=== PATIENT | female | born 1945 | race Two or more races ===

== ENCOUNTER 2018-11-20 18:57 | Inpatient (IN) | payer MEDICARE ==
--- NOTE | 2018-11-20 19:40 | ED PDOC ---
Arrival/HPI - General Chief Complaint: Eye Problem Time Seen by Provider: 11/20/18 19:11 Historian: Patient - History of Present Illness Narrative History of Present Illness (Text): 11/20/18 19:37 70 y/o F w/ h/o HTN, GERD, PNA presenting to the Emergency Room with complaint of bilateral eye irritation. The patient states she noted visual disturbances with intermittent cloudy vision since 2PM this afternoon and was told by her son she had greenish purulent discharge noted from her eyes bilaterally. She reports conjunctiva injection, pruritus and occasional irritation. Of note, the patient has a history of medication non-compliance and is not currently on any medications for her medical conditions. She recalls a distant history of her non-productive cough beginning in September where she was prescribed Levaquin for a presumed PNA and had incidental polyps found within the lung, but had not yet had an bronchoscopy performed. PCP: Dr. Casillas Time/Duration: Prior to Arrival, 4-6 hours Symptom Onset: Sudden Symptom Course: Unchanged Activities at Onset: Rest Context: Home Past Medical History - Provider Review Nursing Documentation Reviewed: Yes - Travel History Have you recently traveled outside [place] w/in the past 3 mons?: No - Infectious Disease Hx of Infectious Diseases: None Family/Social History - Physician Review Nursing Documentation Reviewed: Yes Family/Social History: Unknown Family HX Allergies/Home Meds Allergies/Adverse Reactions: Allergies ibuprofen [From Advil] Allergy (Verified 11/21/18 11:59) ITCHING Home Medications: Home Meds Medication Instructions Recorded Confirmed Pantoprazole [Protonix EC Tab] 40 mg PO DAILY 11/20/18 11/20/18 amLODIPine [Norvasc] 10 mg PO DAILY 11/20/18 11/20/18 Review of Systems - Review of Systems Eyes: Other (purulent discharge) Physical Exam Vital Signs Reviewed: Yes Vital Signs Temp Pulse Resp BP Pulse Ox 11/20/18 19:29 99.4 F 89 16 178/83 H 96 Temperature: Afebrile Blood Pressure: Hypertensive Pulse: Regular Respiratory Rate: Normal Appearance: Positive for: Well-Appearing Medical Decision Making ED Course and Treatment: 11/20/18 23:06 Impression 70F w/ h/o Hypertension and glaucoma presenting to the Emergency Room for bilateral eye discharge Differential Diagnoses Include But Are Not Limited To: --Bacterial conjunctivitis --PNA --Bronchitis Plan --Labs --NSS --Tobramycin drops --CXR --EKG --Urinalysis --Urine culture --Reassess & disposition Progress Notes 11/20/18 23:44 Review of labs reveal leukocytosis with shift. Tobramycin drops ordered. Shared decision making with family for the benefit of staying in the hospital for admission with patient in agreement. Discussed case with medical office representative and house physician who accepts patient onto hospitalist service. - Lab Interpretations Lab Results: 11/20/18 20:20 11/20/18 20:20 Lab Results 11/20/18 22:44: pO2 165 H, VBG pH 7.42, VBG pCO2 43.0, VBG HCO3 27.9, VBG Total CO2 29.2 H, VBG O2 Sat (Calc) 100.2 H, VBG Base Excess 2.9 H, VBG Potassium 4.0, Glucose 117 H, Lactate 0.9, FiO2 21.0, Sodium 137.0, Chloride 104.0, Venous Blood Potassium 4.0 11/20/18 20:20: Influenza Typ A,B (EIA) Negative for flu a/b 11/20/18 20:20: Sodium 138, Potassium 4.1, Chloride 100, Carbon Dioxide 30, Anion Gap 12, BUN 19, Creatinine 0.7, Est GFR ( Amer) > 60, Est GFR (Non- Af Amer) > 60, Random Glucose 120 H, Calcium 10.1, Total Bilirubin 1.3, AST 28, ALT 17, Alkaline Phosphatase 107, Total Protein 9.0 H, Albumin 4.7, Globulin 4.3, Albumin/Globulin Ratio 1.1 11/20/18 20:20: Urine Color Yellow, Urine Appearance Clear, Urine pH 6.0, Ur Specific [place] 1.015, Urine Protein Negative, Urine Glucose (UA) Negative, Urine Ketones Negative, Urine Blood Small H, Urine Nitrate Negative, Urine Bilirubin Negative, Urine Urobilinogen 0.2, Ur Leukocyte Esterase Trace H, Urine RBC 0 - 2, Urine WBC 0 - 2, Ur Epithelial Cells None 11/20/18 20:20: WBC 13.6 H, RBC 4.39, Hgb 13.4, Hct 40.7, MCV 92.7, MCH 30.5, MCHC 32.9, RDW 12.1, Plt Count 248, MPV 10.8, Gran % 65.8, Lymph % (Auto) 21.9 L , [place] % (Auto) 10.5 H, Eos % (Auto) 1.5, Baso % (Auto) 0.3, Gran # 8.93 H, Lymph # (Auto) 3.0, [place] # (Auto) 1.4 H, Eos # (Auto) 0.2, Baso # (Auto) 0.04 I have reviewed the lab results: Yes - EKG Interpretation EKG Interpretation (Text): 11/23/18 08:26 EKG: Ordered, reviewed, and independently interpreted the EKG. Rate : 80 BPM Rhythm : NSR Interpretation : LBBB, diffuse ST depressions with T-wave inversions in infarct leads. Comparison : No previous EKG for comparison. Interpreted by ED Physician: Yes Disposition/Present on Arrival - Present on Arrival Any Indicators Present on Arrival: No History of DVT/PE: No History of Uncontrolled Diabetes: No Urinary Catheter: No History of Decub. Ulcer: No History Surgical Site Infection Following: None - Disposition Have Diagnosis and Disposition been Completed?: Yes Diagnosis: Bacterial conjunctivitis of both eyes, ST segment depression Disposition: HOSPITALIZED Disposition Time: 22:35 Patient Plan: Admission Condition: GOOD
[2018-11-20 20:32] LABS: BASO # 0.04 K/mm3 (0.0-2.0); BASO % 0.3 % (0.0-3.0); EOS # 0.2 (0.0-0.7); EOS % 1.5 % (1.5-5.0); GRAN # 8.93 (1.4-6.5); GRAN % 65.8 % (50.0-68.0); HEMOGLOBIN 13.4 g/dL (12.0-16.0); LYMPH % 21.9 % (22.0-35.0); MEAN CELL VOLUME 92.7 fl (80.0-105.0); MEAN CORPUSCULAR HEMOGLOBIN 30.5 pg (25.0-35.0); MEAN CORPUSCULAR HGB CONC 32.9 g/dl (31.0-37.0); MEAN PLATELET VOLUME 10.8 fl (7.0-11.0); MONO # 1.4 (0.1-0.6); MONO % 10.5 % (1.0-6.0); RBC 4.39 10^6/uL (3.5-6.1); RED CELL DISTRIBUTION WIDTH 12.1 % (11.5-14.5); URINE BILIRUBIN NEGATIVE (NEGATIVE); URINE BLOOD SMALL (NEGATIVE); URINE GLUCOSE (UA) NEGATIVE (NEGATIVE); URINE LEUKOCYTE ESTERASE TRACE Leu/uL (NEGATIVE); URINE PROTEIN NEGATIVE mg/dL (<30 mg/dL); URINE UROBILINOGEN 0.2 E.U./dL (<1 E.U./dL); WHITE BLOOD COUNT 13.6 10^3/uL (4.5-11.0)
[2018-11-20 20:33] LABS: URINE APPEARANCE CLEAR (CLEAR); URINE COLOR YELLOW (YELLOW)
[2018-11-20 20:41] LABS: URINE RBC 0 - 2 /hpf (0-2); URINE WBC 0 - 2 /hpf (0-6)
[2018-11-20 20:45] LABS: ALB/GLOB RATIO 1.1 (1.1-1.8); ALBUMIN 4.7 g/dL (3.0-4.8); ALT/SGPT 17 U/L (7-56); AST/SGOT 28 U/L (14-36); BLOOD UREA NITROGEN 19 mg/dL (7-21); CALCIUM 10.1 mg/dL (8.4-10.5); GFR NON-AFRICAN AMERICAN > 60
[2018-11-20] MEDS ORDERED: Metoprolol 1 mg/ml Inj IVP STA (21:44)
[2018-11-20] MEDS ORDERED: Tobramycin 0.3% OPHT SOLN OU STA (22:17)
[2018-11-20 22:50] LABS: VENOUS BLOOD GAS BASE EXCESS 2.9 mmol/L (0.0-2.0); VENOUS BLOOD GAS PO2 165 mm/Hg (30-55); VENOUS BLOOD PH 7.42 (7.32-7.43)
[2018-11-20 23:12] LABS: TROPONIN I 0.01 ng/mL
[2018-11-21] MEDS ORDERED: Albuterol-Ipratrop 3 mg / 0.5 (3 ml) UD IH PRN (00:05)
--- NOTE | 2018-11-21 00:19 | CP.PCM.HP ---
<SylPraneeth - Last Filed: 11/21/18 00:08> History of Present Illness - History of Present Illness History of Present Illness: Praneeth Streeter, PGY-1, Internal Medicine History and Physical for Dr. Zuniga 70 year old with past medical history of hypertension, Sjogren's syndrome, glaucoma, and asthma currently taking no medications presents with bilateral eye discharge that started today and chronic cough for two weeks. Patient reports left eye pain and redness that progressed to the right eye that started at 13:00 on 11/20. Patient had bilateral eye discharged at 15:00 on 11/20. Patient had no change in vision, double vision, or loss of vision, or pruritis but reported that her eyes have been dry. Patient has not been in contact with anybody with the same symptoms or been in contact with children. Patient has had cough with krause sputum mixed with blood for 2 weeks. Patient had had dry cough for 2 weeks and reported recent krause sputum with mixed blood. Patient reports hoarseness, sore throat, and dry mouth. Patient reports no exacerbating or remitting factors. Patient reported no fever, chest pain, shortness of breath, and has not taken anything for these symptoms. Patient also reports occasional shortness of breath and dry cough during the winter months yearly. PMH: hypertension, Sjogren's, glaucoma, asthma PSH: left meniscus surgery, bladder lift, varicose vein ablation FMHx: Mother: hypertension, glaucoma SHx: denies smoking, alcohol, or recreational drug use Allergies: advil: pruritis Last echocardiogram: done [address] Ward but results are unknown PMD: Dr. Casillas Marketing Production Manager: Dr. Ward Home Rx: denies Present on Admission - Present on Admission Any Indicators Present on Admission: No Review of Systems - Constitutional Constitutional: absent: Chills, Fever - EENT Eyes: Discharge, Dry Eye, Floaters, Pain. absent: Blurred Vision, Change in Vision, Diplopia, Itchy Eyes Ears: absent: Decreased Hearing Nose/Mouth/Throat: Nasal Congestion, Nasal Discharge, Dry Mouth, Hoarsness, Sore Throat - Cardiovascular Cardiovascular: absent: Chest Pain, Dyspnea, Orthopnea - Respiratory Respiratory: Cough (productive with krause sputum mixed with blood). absent: Dyspnea, Wheezing - Gastrointestinal Gastrointestinal: absent: Abdominal Pain, Constipation, Diarrhea, Nausea, Vomiting - Genitourinary Genitourinary: absent: Dysuria, Hematuria - Musculoskeletal Musculoskeletal: absent: Arthralgias, Back Pain - Neurological Neurological: absent: Numbness, Headaches, Tingling, Tremor, Vertigo Past Patient History - Infectious Disease Hx of Infectious Diseases: None - Past Social History Smoking Status: Never Smoked - CARDIAC Hx Cardiac Disorders: Yes Hx Angina: Yes Hx Hypertension: Yes Other/Comment: "problem with her valve" - PULMONARY Hx Respiratory Disorders: Yes Hx Asthma: Yes - NEUROLOGICAL Hx Neurological Disorder: No - HEENT Hx HEENT Problems: No - RENAL Hx Chronic Kidney Disease: No - ENDOCRINE/METABOLIC Hx Endocrine Disorders: No - HEMATOLOGICAL/ONCOLOGICAL Hx Blood Disorders: No - INTEGUMENTARY Hx Dermatological Problems: No - MUSCULOSKELETAL/RHEUMATOLOGICAL Hx Musculoskeletal Disorders: Yes Hx Degenerative Joint Disease: Yes - GASTROINTESTINAL Hx Gastrointestinal Disorders: Yes Hx Gastroesophageal Reflux: Yes - GENITOURINARY/GYNECOLOGICAL Hx Genitourinary Disorders: No - PSYCHIATRIC Hx Psychophysiologic Disorder: No Hx Substance Use: No - SURGICAL HISTORY Hx Surgeries: Yes Hx Arthroscopy: Yes (lt knee) Hx Tubal Ligation: Yes Other/Comment: bilat rotator cuff sx. bladder sx - ANESTHESIA Hx Anesthesia: Yes Hx Anesthesia Reactions: No Hx Malignant Hyperthermia: No Meds Allergies/Adverse Reactions: Allergies Allergy/AdvReac Type Severity Reaction Status Date / Time ibuprofen [From Advil] Allergy ITCHING Verified 11/20/18 19:48 Physical Exam - Constitutional Appears: Well, Non-toxic, No Acute Distress - Head Exam Head Exam: ATRAUMATIC, NORMAL INSPECTION, NORMOCEPHALIC - Eye Exam Eye Exam: EOMI, PERRL Pupil Exam: NORMAL ACCOMODATION, PERRL Additional comments: bilateral conjunctival infection, bilateral eye discharge - ENT Exam ENT Exam: Mucous Membranes Dry Additional comments: isolated bone on top palate of buccal region - Neck Exam Neck exam: Positive for: Full Rom - Respiratory Exam Respiratory Exam: Clear to Auscultation Bilateral, NORMAL BREATHING PATTERN - Cardiovascular Exam Cardiovascular Exam: REGULAR RHYTHM, RRR - GI/Abdominal Exam GI & Abdominal Exam: Normal Bowel Sounds, Soft. absent: Tenderness - Extremities Exam Extremities exam: Positive for: full ROM Additional comments: negative Heike's sign - Neurological Exam Neurological exam: Alert, CN II-XII Intact, Oriented x3 - Skin Skin Exam: Dry, Intact, Normal Color Results - Vital Signs Recent Vital Signs: Last Vital Signs Temp 99.2 F 11/20/18 22:30 Pulse 80 11/20/18 22:30 Resp 18 11/20/18 22:30 BP 167/100 H 11/20/18 22:30 Pulse Ox 97 11/20/18 22:30 - Labs Result Diagrams: 11/20/18 20:20 11/20/18 20:20 Labs: Laboratory Results - last 24 hr 11/20/18 11/20/18 11/20/18 20:20 20:20 20:20 WBC 13.6 H RBC 4.39 Hgb 13.4 Hct 40.7 MCV 92.7 MCH 30.5 MCHC 32.9 RDW 12.1 Plt Count 248 MPV 10.8 Gran % 65.8 Lymph % (Auto) 21.9 L [place] % (Auto) 10.5 H Eos % (Auto) 1.5 Baso % (Auto) 0.3 Gran # 8.93 H Lymph # (Auto) 3.0 [place] # (Auto) 1.4 H Eos # (Auto) 0.2 Baso # (Auto) 0.04 D-Dimer, Quantitative pO2 VBG pH VBG pCO2 VBG HCO3 VBG Total CO2 VBG O2 Sat (Calc) VBG Base Excess VBG Potassium Glucose Lactate FiO2 Sodium 138 Potassium 4.1 Chloride 100 Carbon Dioxide 30 Anion Gap 12 BUN 19 Creatinine 0.7 Est GFR ( Amer) > 60 Est GFR (Non-Af Amer) > 60 Random Glucose 120 H Calcium 10.1 Total Bilirubin 1.3 AST 28 ALT 17 Alkaline Phosphatase 107 Troponin I NT-Pro-B Natriuret Pep Total Protein 9.0 H Albumin 4.7 Globulin 4.3 Albumin/Globulin Ratio 1.1 Venous Blood Potassium Urine Color Yellow Urine Appearance Clear Urine pH 6.0 Ur Specific [place] 1.015 Urine Protein Negative Urine Glucose (UA) Negative Urine Ketones Negative Urine Blood Small H Urine Nitrate Negative Urine Bilirubin Negative Urine Urobilinogen 0.2 Ur Leukocyte Esterase Trace H Urine RBC 0 - 2 Urine WBC 0 - 2 Ur Epithelial Cells None Influenza Typ A,B (EIA) 11/20/18 11/20/18 11/20/18 20:20 22:44 22:44 WBC RBC Hgb Hct MCV MCH MCHC RDW Plt Count MPV Gran % Lymph % (Auto) [place] % (Auto) Eos % (Auto) Baso % (Auto) Gran # Lymph # (Auto) [place] # (Auto) Eos # (Auto) Baso # (Auto) D-Dimer, Quantitative pO2 165 H VBG pH 7.42 VBG pCO2 43.0 VBG HCO3 27.9 VBG Total CO2 29.2 H VBG O2 Sat (Calc) 100.2 H VBG Base Excess 2.9 H VBG Potassium 4.0 Glucose 117 H Lactate 0.9 FiO2 21.0 Sodium 137.0 Potassium Chloride 104.0 Carbon Dioxide Anion Gap BUN Creatinine Est GFR ( Amer) Est GFR (Non-Af Amer) Random Glucose Calcium Total Bilirubin AST ALT Alkaline Phosphatase Troponin I 0.01 NT-Pro-B Natriuret Pep 1140 H Total Protein Albumin Globulin Albumin/Globulin Ratio Venous Blood Potassium 4.0 Urine Color Urine Appearance Urine pH Ur Specific [place] Urine Protein Urine Glucose (UA) Urine Ketones Urine Blood Urine Nitrate Urine Bilirubin Urine Urobilinogen Ur Leukocyte Esterase Urine RBC Urine WBC Ur Epithelial Cells Influenza Typ A,B (EIA) Negative for flu a/b 11/20/18 22:44 WBC RBC Hgb Hct MCV MCH MCHC RDW Plt Count MPV Gran % Lymph % (Auto) [place] % (Auto) Eos % (Auto) Baso % (Auto) Gran # Lymph # (Auto) [place] # (Auto) Eos # (Auto) Baso # (Auto) D-Dimer, Quantitative 620 H pO2 VBG pH VBG pCO2 VBG HCO3 VBG Total CO2 VBG O2 Sat (Calc) VBG Base Excess VBG Potassium Glucose Lactate FiO2 Sodium Potassium Chloride Carbon Dioxide Anion Gap BUN Creatinine Est GFR ( Amer) Est GFR (Non-Af Amer) Random Glucose Calcium Total Bilirubin AST ALT Alkaline Phosphatase Troponin I NT-Pro-B Natriuret Pep Total Protein Albumin Globulin Albumin/Globulin Ratio Venous Blood Potassium Urine Color Urine Appearance Urine pH Ur Specific [place] Urine Protein Urine Glucose (UA) Urine Ketones Urine Blood Urine Nitrate Urine Bilirubin Urine Urobilinogen Ur Leukocyte Esterase Urine RBC Urine WBC Ur Epithelial Cells Influenza Typ A,B (EIA) Assessment & Plan - Assessment and Plan (Free Text) Assessment: 70 year old with past medical history of hypertension, Sjogren's syndrome, glaucoma, and asthma currently taking no medications presents with bilateral eye discharge that started today and chronic cough for two weeks. Plan: Cough with sputum 2/2 to acute bronchitis vs. community acquired pneumonia -Chest X Ray: questionable left lower lobe infiltrate read by me -WBC: 13.6 but does not currently meet criteria for SIRS -Negative influenza screen -Strep pneumonia urine antigen ordered -Isolated D-Dimer elevation. Likely due to recent infection. Patient currently does not have any acute symptoms or signs concerning for DVT or PE. Continue to monitor. -Rocephin and doxycycline for CAP. Avoid antibiotics and medications that prolong QTc, such as macrolides and fluoroquinolones -Tessalon Perles for cough -Duonebs PRN for supportive treatment for shortness of breath -Robitussin PRN for cough Purulent Conjunctivitis 2/2 to bacterial vs. 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 History of Hypertension -Patient currently does not take any medication at home -Patient's blood pressure is 178/98 -Troponin<0.01 -BNP: 1140. Baseline unknown -Lisinopril 20 mg daily ordered due to additional history of possible nephropathy -Patient's EKG showed evidence of possible LVH, which is possibly due to hypertension so blood pressure should be well controlled -Obtain records from Dr. Ward for last echocardiogram 3 months ago due to elevated BNP. Unlikely, but could be possible cause of unilateral effusion vs. infiltrate on Chest X Ray History of Asthma likely Mild intermittent asthma -Patient should get outpatient PFTs -Patient currently asymptomatic and stating at 97% on room air -Duonebs Q2PRN for shortness of breath GI prophylaxis: protonix 40 mg daily DVT prophylaxis: lovenox 40 mg daily Patient plan discussed with Dr. Zuniga. - Date & Time Date: 11/21/18 Time: 00:24 <Melva Zuniga - Last Filed: 11/21/18 06:43> Results - Vital Signs Recent Vital Signs: Last Vital Signs Temp 98.7 F 11/21/18 03:08 Pulse 83 11/21/18 05:00 Resp 14 11/21/18 05:00 BP 137/79 11/21/18 05:00 Pulse Ox 95 11/21/18 05:00 - Labs Result Diagrams: 11/20/18 20:20 11/20/18 20:20 Labs: Laboratory Results - last 24 hr 11/20/18 11/20/18 11/20/18 20:20 20:20 20:20 WBC 13.6 H RBC 4.39 Hgb 13.4 Hct 40.7 MCV 92.7 MCH 30.5 MCHC 32.9 RDW 12.1 Plt Count 248 MPV 10.8 Gran % 65.8 Lymph % (Auto) 21.9 L [place] % (Auto) 10.5 H Eos % (Auto) 1.5 Baso % (Auto) 0.3 Gran # 8.93 H Lymph # (Auto) 3.0 [place] # (Auto) 1.4 H Eos # (Auto) 0.2 Baso # (Auto) 0.04 ESR D-Dimer, Quantitative pO2 VBG pH VBG pCO2 VBG HCO3 VBG Total CO2 VBG O2 Sat (Calc) VBG Base Excess VBG Potassium Glucose Lactate FiO2 Sodium 138 Potassium 4.1 Chloride 100 Carbon Dioxide 30 Anion Gap 12 BUN 19 Creatinine 0.7 Est GFR ( Amer) > 60 Est GFR (Non-Af Amer) > 60 Random Glucose 120 H Calcium 10.1 Total Bilirubin 1.3 AST 28 ALT 17 Alkaline Phosphatase 107 Troponin I NT-Pro-B Natriuret Pep Total Protein 9.0 H Albumin 4.7 Globulin 4.3 Albumin/Globulin Ratio 1.1 Venous Blood Potassium Urine Color Yellow Urine Appearance Clear Urine pH 6.0 Ur Specific [place] 1.015 Urine Protein Negative Urine Glucose (UA) Negative Urine Ketones Negative Urine Blood Small H Urine Nitrate Negative Urine Bilirubin Negative Urine Urobilinogen 0.2 Ur Leukocyte Esterase Trace H Urine RBC 0 - 2 Urine WBC 0 - 2 Ur Epithelial Cells None Influenza Typ A,B (EIA) 11/20/18 11/20/18 11/20/18 20:20 22:44 22:44 WBC RBC Hgb Hct MCV MCH MCHC RDW Plt Count MPV Gran % Lymph % (Auto) [place] % (Auto) Eos % (Auto) Baso % (Auto) Gran # Lymph # (Auto) [place] # (Auto) Eos # (Auto) Baso # (Auto) ESR D-Dimer, Quantitative pO2 165 H VBG pH 7.42 VBG pCO2 43.0 VBG HCO3 27.9 VBG Total CO2 29.2 H VBG O2 Sat (Calc) 100.2 H VBG Base Excess 2.9 H VBG Potassium 4.0 Glucose 117 H Lactate 0.9 FiO2 21.0 Sodium 137.0 Potassium Chloride 104.0 Carbon Dioxide Anion Gap BUN Creatinine Est GFR ( Amer) Est GFR (Non-Af Amer) Random Glucose Calcium Total Bilirubin AST ALT Alkaline Phosphatase Troponin I 0.01 NT-Pro-B Natriuret Pep 1140 H Total Protein Albumin Globulin Albumin/Globulin Ratio Venous Blood Potassium 4.0 Urine Color Urine Appearance Urine pH Ur Specific [place] Urine Protein Urine Glucose (UA) Urine Ketones Urine Blood Urine Nitrate Urine Bilirubin Urine Urobilinogen Ur Leukocyte Esterase Urine RBC Urine WBC Ur Epithelial Cells Influenza Typ A,B (EIA) Negative for flu a/b 11/20/18 11/21/18 22:44 03:30 WBC RBC Hgb Hct MCV MCH MCHC RDW Plt Count MPV Gran % Lymph % (Auto) [place] % (Auto) Eos % (Auto) Baso % (Auto) Gran # Lymph # (Auto) [place] # (Auto) Eos # (Auto) Baso # (Auto) ESR 36 H D-Dimer, Quantitative 620 H pO2 VBG pH VBG pCO2 VBG HCO3 VBG Total CO2 VBG O2 Sat (Calc) VBG Base Excess VBG Potassium Glucose Lactate FiO2 Sodium Potassium Chloride Carbon Dioxide Anion Gap BUN Creatinine Est GFR ( Amer) Est GFR (Non-Af Amer) Random Glucose Calcium Total Bilirubin AST ALT Alkaline Phosphatase Troponin I NT-Pro-B Natriuret Pep Total Protein Albumin Globulin Albumin/Globulin Ratio Venous Blood Potassium Urine Color Urine Appearance Urine pH Ur Specific [place] Urine Protein Urine Glucose (UA) Urine Ketones Urine Blood Urine Nitrate Urine Bilirubin Urine Urobilinogen Ur Leukocyte Esterase Urine RBC Urine WBC Ur Epithelial Cells Influenza Typ A,B (EIA) Attending/Attestation - Attestation I have personally seen and examined this patient.: Yes I have fully participated in the care of the patient.: Yes I have reviewed all pertinent clinical information: Yes
[2018-11-21] MEDS ORDERED: Tobramycin 0.3% OPH OINT OD SCH (00:30)
[2018-11-21] MEDS ORDERED: guaiFENesin 100 mg/5 ml Syrup UD PO PRN (00:30)
[2018-11-21] MEDS ORDERED: Ophthalmic Irrigation, Soln OD STA (00:31)
[2018-11-21] MEDS ORDERED: Saliva Substitute 44.3 ML PO PRN (00:32)
[2018-11-21] MEDS ORDERED: Aritificial Tears (15ml) OD PRN (00:32)
[2018-11-21] MEDS: Ophthalmic Irrigation, Soln OD SCH (01:21)
[2018-11-21] MEDS: Tobramycin 0.3% OPH OINT OD SCH ×2 (02:35→17:55)
[2018-11-21 09:19] LABS: BASO # 0.03 K/mm3 (0.0-2.0); BASO % 0.2 % (0.0-3.0); EOS # 0.2 (0.0-0.7); EOS % 1.2 % (1.5-5.0); GRAN # 8.26 (1.4-6.5); GRAN % 68.4 % (50.0-68.0); HEMOGLOBIN 12.9 g/dL (12.0-16.0); LYMPH # 2.6 (1.2-3.4); LYMPH % 21.3 % (22.0-35.0); MEAN CELL VOLUME 92.3 fl (80.0-105.0); MEAN CORPUSCULAR HEMOGLOBIN 30.2 pg (25.0-35.0); MEAN CORPUSCULAR HGB CONC 32.7 g/dl (31.0-37.0); MEAN PLATELET VOLUME 10.4 fl (7.0-11.0); MONO # 1.1 (0.1-0.6); MONO % 8.9 % (1.0-6.0); RBC 4.27 10^6/uL (3.5-6.1); RED CELL DISTRIBUTION WIDTH 12.2 % (11.5-14.5); WHITE BLOOD COUNT 12.1 10^3/uL (4.5-11.0)
--- NOTE | 2018-11-21 09:24 | RAD ---
Date of service: 11/20/2018 HISTORY: cough COMPARISON: No prior. FINDINGS: LUNGS: No active pulmonary disease. PLEURA: No significant pleural effusion identified, no pneumothorax apparent. CARDIOVASCULAR: No aortic atherosclerotic calcification present. Normal cardiac size. No pulmonary vascular congestion. OSSEOUS STRUCTURES: No significant abnormalities. VISUALIZED UPPER ABDOMEN: Normal. OTHER FINDINGS: None. IMPRESSION: No active disease.
[2018-11-21] MEDS ORDERED: cefTRIAXone 1 gm 1 GM/100 ML BAG IVPB SCH (10:00)
[2018-11-21 10:05] LABS: ALB/GLOB RATIO 1.1 (1.1-1.8); ALBUMIN 4.1 g/dL (3.0-4.8); ALT/SGPT 21 U/L (7-56); AST/SGOT 28 U/L (14-36); BLOOD UREA NITROGEN 14 mg/dL (7-21); CALCIUM 9.5 mg/dL (8.4-10.5); GFR NON-AFRICAN AMERICAN > 60
--- NOTE | 2018-11-21 10:31 | CARD ---
APPROVED REPORT Date of service: 11/20/2018 EKG Measurement Heart [id number] <Conclusion> Normal sinus rhythm Left bundle branch block Abnormal ECG
[2018-11-21 10:32] VITALS: RESP 18
[2018-11-21] MEDS: Enoxaparin 40 mg Syringe SC SCH ×2 (10:44→10:54)
[2018-11-21 16:18] VITALS: BMI 24.8
[2018-11-21] MEDS ORDERED: Pneumococcal 23-Valent Vaccine IM ONE (16:18)
[2018-11-21] MEDS ORDERED: Influenza Vaccine 60 mcg/0.5 mL SYR (4YR UP) IM ONE (16:18)
[2018-11-22] MEDS: Ophthalmic Irrigation, Soln OD SCH ×2 (01:19→12:45)
[2018-11-22] MEDS ORDERED: Pantoprazole 40 mg EC Tab PO SCH (07:30)
[2018-11-22 08:46] VITALS: BP 121/68; PULSE 80; TEMP 98.6; O2SAT 98
[2018-11-22 08:59] LABS: MEAN CELL VOLUME 92.2 fl (80.0-105.0); MEAN CORPUSCULAR HEMOGLOBIN 30.2 pg (25.0-35.0); MEAN CORPUSCULAR HGB CONC 32.8 g/dl (31.0-37.0); RBC 3.97 10^6/uL (3.5-6.1); WHITE BLOOD COUNT 11.9 10^3/uL (4.5-11.0)
[2018-11-22 09:19] LABS: ALB/GLOB RATIO 1.1 (1.1-1.8); ALBUMIN 3.8 g/dL (3.0-4.8); ALT/SGPT 26 U/L (7-56); AST/SGOT 29 U/L (14-36); BLOOD UREA NITROGEN 15 mg/dL (7-21); CALCIUM 9.4 mg/dL (8.4-10.5); GFR NON-AFRICAN AMERICAN > 60
[2018-11-22 11:32] LABS: ALBUMIN (PEP) 3.4 g/dL (3.8-4.8); ALPHA-1-GLOBULIN (PEP) 0.4 g/dL (0.2-0.3)
[2018-11-22] MEDS: Enoxaparin 40 mg Syringe SC SCH (12:55)
--- NOTE | 2018-11-22 13:27 | CP.PCM.DIS ---
<Rakesh Covarrubias - Last Filed: 11/22/18 17:56> Provider - Provider Date of Admission: 11/20/18 23:06 Attending physician: Davonte Dowling MD Primary care physician: Panchito Casillas APN Time Spent in preparation of Discharge (in minutes): 45 Diagnosis - Discharge Diagnosis (1) Acute bronchitis Status: Acute (2) Bilateral conjunctivitis Status: Acute (3) Sjogrens syndrome Status: Chronic (4) HTN (hypertension) Status: Chronic (5) Asthma Status: Chronic Hospital Course - Lab Results Lab Results: Micro Results 11/20/18 21:48 Urine,Clean Catch Urine Culture - Final No Growth (<1,000 CFU/ML) 11/21/18 01:40 Blood Blood Culture - Preliminary NO GROWTH AFTER 24 HOURS 11/21/18 01:05 Blood Blood Culture - Preliminary NO GROWTH AFTER 24 HOURS Most Recent Lab Values WBC 11.9 10^3/uL (4.5-11.0) H 11/22/18 08:43 RBC 3.97 10^6/uL (3.5-6.1) 11/22/18 08:43 Hgb 12.0 g/dL (12.0-16.0) 11/22/18 08:43 Hct 36.6 % (36.0-48.0) 11/22/18 08:43 MCV 92.2 fl (80.0-105.0) 11/22/18 08:43 MCH 30.2 pg (25.0-35.0) 11/22/18 08:43 MCHC 32.8 g/dl (31.0-37.0) 11/22/18 08:43 RDW 12.0 % (11.5-14.5) 11/22/18 08:43 Plt Count 245 10^3/uL (120.0-450.0) 11/22/18 08:43 MPV 11.0 fl (7.0-11.0) 11/22/18 08:43 Gran % 68.4 % (50.0-68.0) H 11/21/18 09:00 Lymph % (Auto) 21.3 % (22.0-35.0) L 11/21/18 09:00 [place] % (Auto) 8.9 % (1.0-6.0) H 11/21/18 09:00 Eos % (Auto) 1.2 % (1.5-5.0) L 11/21/18 09:00 Baso % (Auto) 0.2 % (0.0-3.0) 11/21/18 09:00 Gran # 8.26 (1.4-6.5) H 11/21/18 09:00 Lymph # (Auto) 2.6 (1.2-3.4) 11/21/18 09:00 [place] # (Auto) 1.1 (0.1-0.6) H 11/21/18 09:00 Eos # (Auto) 0.2 (0.0-0.7) 11/21/18 09:00 Baso # (Auto) 0.03 K/mm3 (0.0-2.0) 11/21/18 09:00 ESR 36 mm/hr (0.0-20.0) H 11/21/18 03:30 D-Dimer, Quantitative 620 ng/mlDDU (0-243) H 11/20/18 22:44 pO2 165 mm/Hg (30-55) H 11/20/18 22:44 VBG pH 7.42 (7.32-7.43) 11/20/18 22:44 VBG pCO2 43.0 (40-60) 11/20/18 22:44 VBG HCO3 27.9 mmol/l (21-28) 11/20/18 22:44 VBG Total CO2 29.2 mmol.L (22-28) H 11/20/18 22:44 VBG O2 Sat (Calc) 100.2 % (40-65) H 11/20/18 22:44 VBG Base Excess 2.9 mmol/L (0.0-2.0) H 11/20/18 22:44 VBG Potassium 4.0 mmol/L (3.6-5.2) 11/20/18 22:44 Sodium 137.0 mmol/L (132-148) 11/20/18 22:44 Chloride 104.0 mmol/L (98-107) 11/20/18 22:44 Glucose 117 mg/dl (65-105) H 11/20/18 22:44 Lactate 0.9 mmol/L (0.7-2.1) 11/20/18 22:44 FiO2 21.0 % 11/20/18 22:44 Sodium 139 mmol/L (132-148) 11/22/18 08:43 Potassium 4.1 mmol/L (3.6-5.0) 11/22/18 08:43 Chloride 105 mmol/L (98-107) 11/22/18 08:43 Carbon Dioxide 26 mmol/L (21-33) 11/22/18 08:43 Anion Gap 12 (10-20) 11/22/18 08:43 BUN 15 mg/dL (7-21) 11/22/18 08:43 Creatinine 0.7 mg/dl (0.7-1.2) 11/22/18 08:43 Est GFR ( Amer) > 60 11/22/18 08:43 Est GFR (Non-Af Amer) > 60 11/22/18 08:43 Random Glucose 111 mg/dL (70-110) H 11/22/18 08:43 Calcium 9.4 mg/dL (8.4-10.5) 11/22/18 08:43 Total Bilirubin 0.8 mg/dL (0.2-1.3) 11/22/18 08:43 AST 29 U/L (14-36) 11/22/18 08:43 ALT 26 U/L (7-56) 11/22/18 08:43 Alkaline Phosphatase 97 U/L (38-126) 11/22/18 08:43 Troponin I 0.01 ng/mL 11/20/18 22:44 NT-Pro-B Natriuret Pep 1140 pg/mL (0-450) H 11/20/18 22:44 Total Protein 7.4 g/dL (5.8-8.3) 11/22/18 08:43 Total Protein (PEP) 6.8 g/dL (6.1-8.1) 11/21/18 03:30 Albumin 3.8 g/dL (3.0-4.8) 11/22/18 08:43 Albumin (PEP) 3.4 g/dL (3.8-4.8) L 11/21/18 03:30 Globulin 3.6 gm/dL 11/22/18 08:43 Albumin/Globulin Ratio 1.1 (1.1-1.8) 11/22/18 08:43 Krppx-3-Ukyhuzpae 0.4 g/dL (0.2-0.3) H 11/21/18 03:30 Mscmi-7-Smxlllngt 0.9 g/dL (0.5-0.9) 11/21/18 03:30 Mbkt-1-Zylpxetz 0.4 g/dL (0.4-0.6) 11/21/18 03:30 Boul-3-Zldhfldr 0.5 g/dL (0.2-0.5) 11/21/18 03:30 Gamma Globulins 1.3 g/dL (0.8-1.7) 11/21/18 03:30 Abnorm Protein Band 1 TEST NOT PERFORMED 11/21/18 03:30 Abnorm Protein Band 2 TEST NOT PERFORMED 11/21/18 03:30 Abnorm Protein Band 3 TEST NOT PERFORMED 11/21/18 03:30 Venous Blood Potassium 4.0 mmol/L (3.6-5.2) 11/20/18 22:44 Urine Color Yellow (YELLOW) 11/20/18 20:20 Urine Appearance Clear (CLEAR) 11/20/18 20:20 Urine pH 6.0 (4.7-8.0) 11/20/18 20:20 Ur Specific [place] 1.015 (1.005-1.035) 11/20/18 20:20 Urine Protein Negative mg/dL (<30 mg/dL) 11/20/18 20:20 Urine Glucose (UA) Negative mg/dL (NEGATIVE) 11/20/18 20:20 Urine Ketones Negative mg/dL (NEGATIVE) 11/20/18 20:20 Urine Blood Small (NEGATIVE) H 11/20/18 20:20 Urine Nitrate Negative (NEGATIVE) 11/20/18 20:20 Urine Bilirubin Negative (NEGATIVE) 11/20/18 20:20 Urine Urobilinogen 0.2 E.U./dL (<1 E.U./dL) 11/20/18 20:20 Ur Leukocyte Esterase Trace Saeed/uL (NEGATIVE) H 11/20/18 20:20 Urine RBC 0 - 2 /hpf (0-2) 11/20/18 20:20 Urine WBC 0 - 2 /hpf (0-6) 11/20/18 20:20 Ur Epithelial Cells None /hpf (0-5) 11/20/18 20:20 ARGELIA & SPEP Interp See note 11/21/18 03:30 Influenza Typ A,B (EIA) Negative for flu a/b (NEGATIVE) 11/20/18 20:20 - Hospital Course Hospital Course: HPI at time of admission: "70 year old with past medical history of hypertension, Sjogren's syndrome, glaucoma, and asthma currently taking no medications presents with bilateral eye discharge that started today and chronic cough for two weeks. Patient reports left eye pain and redness that progressed to the right eye that started at 13:00 on 11/20. Patient had bilateral eye discharged at 15:00 on 11/20. Patient had no change in vision, double vision, or loss of vision, or pruritis but reported that her eyes have been dry. Patient has not been in contact with anybody with the same symptoms or been in contact with children. Patient has had cough with krause sputum mixed with blood for 2 weeks. Patient had had dry cough for 2 weeks and reported recent krause sputum with mixed blood. Patient reports hoarseness, sore throat, and dry mouth. Patient reports no exacerbating or remitting factors. Patient reported no fever, chest pain, shortness of breath, and has not taken anything for these symptoms. Patient also reports occasional shortness of breath and dry cough during the winter months yearly." Hospital Course: Pertinent imaging: CXR: no active disease Pt was admitted for management of acute bronchitis and placed on antibiotics. Pt was also treated for b/l conjunctivitis with Tobramycin eye drops, and also placed on artificial tears due to hx Sjogren's syndrome Pt was also management for comorbid conditions HTN and asthma while inpatient on home regimens. Pt's symptoms clinically improved and thus was discharged to home in stable condition on 11/22/18. Was instructed to f/u with her PMD within 3-5 days of hospital discharge. Given scripts for Tobramycin eye drops and for Azithromycin to take for the next 3 days of therapy. For further details about hospital admission, please refer to hospital EMR. Discharge Exam - Head Exam Head Exam: ATRAUMATIC, NORMAL INSPECTION, NORMOCEPHALIC - Eye Exam Eye Exam: Conjunctival injection, EOMI, PERRL - Respiratory Exam Respiratory Exam: Clear to PA & Lateral, NORMAL BREATHING PATTERN, UNREMARKABLE. absent: Rales, Rhonchi, Wheezes - Cardiovascular Exam Cardiovascular Exam: REGULAR RHYTHM, +S1, +S2. absent: Gallop, Rubs, Systolic Murmur - GI/Abdominal Exam GI & Abdominal Exam: Normal Bowel Sounds, Soft, Unremarkable. absent: Dis tended, Organomegaly, Tenderness - Extremities Exam Extremities exam: full ROM, normal capillary refill, normal inspection, pedal pulses present - Neurological Exam Neurological exam: Alert, CN II-XII Intact, Normal Gait, Oriented x3, Reflexes Normal - Skin Skin Exam: Dry, Intact, Normal Color, Warm Discharge Plan - Discharge Medications Prescriptions: RX: Azithromycin [Zithromax] 250 mg PO DAILY #3 tab RX: Tobramycin 0.3% [Tobrex 0.3% Ophth Oint] 1 appl OD Q12H #1 tube - Follow Up Plan Condition: GOOD Disposition: HOME/ ROUTINE Instructions: Conjunctivitis ([place]) (DC), Flu Vaccine Additional Instructions: Please follow up with your primary care doctor (Panchito Casillas APN) within 3-5 days of discharge. You will be given the following prescriptions on discharge: 1. Azithromycin 250 mg orally once daily for the next 3 days 2. Tobramycin eye drops, place 1 eye drop in each eye every 12 hours for the next 5 days Resume home medications as prescribed. Please stop taking Levaquin antibiotic. If your symptoms return, please call your primary care physician or go to the nearest emergency department. Referrals: Sonja NAPOLES,Panchito Bains APN [Primary Care Provider] - <Davonte Dowling - Last Filed: 11/23/18 17:02> Provider - Provider Date of Admission: 11/20/18 23:06 Attending physician: Davonte Dowling MD Primary care physician: Panchito Casillas APN Hospital Course - Lab Results Lab Results: Micro Results 11/21/18 01:40 Blood Blood Culture - Preliminary NO GROWTH AFTER 48 HOURS 11/21/18 01:05 Blood Blood Culture - Preliminary NO GROWTH AFTER 48 HOURS 11/20/18 21:48 Urine,Clean Catch Urine Culture - Final No Growth (<1,000 CFU/ML) Most Recent Lab Values WBC 11.9 10^3/uL (4.5-11.0) H 11/22/18 08:43 RBC 3.97 10^6/uL (3.5-6.1) 11/22/18 08:43 Hgb 12.0 g/dL (12.0-16.0) 11/22/18 08:43 Hct 36.6 % (36.0-48.0) 11/22/18 08:43 MCV 92.2 fl (80.0-105.0) 11/22/18 08:43 MCH 30.2 pg (25.0-35.0) 11/22/18 08:43 MCHC 32.8 g/dl (31.0-37.0) 11/22/18 08:43 RDW 12.0 % (11.5-14.5) 11/22/18 08:43 Plt Count 245 10^3/uL (120.0-450.0) 11/22/18 08:43 MPV 11.0 fl (7.0-11.0) 11/22/18 08:43 Gran % 68.4 % (50.0-68.0) H 11/21/18 09:00 Lymph % (Auto) 21.3 % (22.0-35.0) L 11/21/18 09:00 [place] % (Auto) 8.9 % (1.0-6.0) H 11/21/18 09:00 Eos % (Auto) 1.2 % (1.5-5.0) L 11/21/18 09:00 Baso % (Auto) 0.2 % (0.0-3.0) 11/21/18 09:00 Gran # 8.26 (1.4-6.5) H 11/21/18 09:00 Lymph # (Auto) 2.6 (1.2-3.4) 11/21/18 09:00 [place] # (Auto) 1.1 (0.1-0.6) H 11/21/18 09:00 Eos # (Auto) 0.2 (0.0-0.7) 11/21/18 09:00 Baso # (Auto) 0.03 K/mm3 (0.0-2.0) 11/21/18 09:00 ESR 36 mm/hr (0.0-20.0) H 11/21/18 03:30 D-Dimer, Quantitative 620 ng/mlDDU (0-243) H 11/20/18 22:44 pO2 165 mm/Hg (30-55) H 11/20/18 22:44 VBG pH 7.42 (7.32-7.43) 11/20/18 22:44 VBG pCO2 43.0 (40-60) 11/20/18 22:44 VBG HCO3 27.9 mmol/l (21-28) 11/20/18 22:44 VBG Total CO2 29.2 mmol.L (22-28) H 11/20/18 22:44 VBG O2 Sat (Calc) 100.2 % (40-65) H 11/20/18 22:44 VBG Base Excess 2.9 mmol/L (0.0-2.0) H 11/20/18 22:44 VBG Potassium 4.0 mmol/L (3.6-5.2) 11/20/18 22:44 Sodium 137.0 mmol/L (132-148) 11/20/18 22:44 Chloride 104.0 mmol/L (98-107) 11/20/18 22:44 Glucose 117 mg/dl (65-105) H 11/20/18 22:44 Lactate 0.9 mmol/L (0.7-2.1) 11/20/18 22:44 FiO2 21.0 % 11/20/18 22:44 Sodium 139 mmol/L (132-148) 11/22/18 08:43 Potassium 4.1 mmol/L (3.6-5.0) 11/22/18 08:43 Chloride 105 mmol/L (98-107) 11/22/18 08:43 Carbon Dioxide 26 mmol/L (21-33) 11/22/18 08:43 Anion Gap 12 (10-20) 11/22/18 08:43 BUN 15 mg/dL (7-21) 11/22/18 08:43 Creatinine 0.7 mg/dl (0.7-1.2) 11/22/18 08:43 Est GFR ( Amer) > 60 11/22/18 08:43 Est GFR (Non-Af Amer) > 60 11/22/18 08:43 Random Glucose 111 mg/dL (70-110) H 11/22/18 08:43 Calcium 9.4 mg/dL (8.4-10.5) 11/22/18 08:43 Total Bilirubin 0.8 mg/dL (0.2-1.3) 11/22/18 08:43 AST 29 U/L (14-36) 11/22/18 08:43 ALT 26 U/L (7-56) 11/22/18 08:43 Alkaline Phosphatase 97 U/L (38-126) 11/22/18 08:43 Troponin I 0.01 ng/mL 11/20/18 22:44 NT-Pro-B Natriuret Pep 1140 pg/mL (0-450) H 11/20/18 22:44 Total Protein 7.4 g/dL (5.8-8.3) 11/22/18 08:43 Total Protein (PEP) 6.8 g/dL (6.1-8.1) 11/21/18 03:30 Albumin 3.8 g/dL (3.0-4.8) 11/22/18 08:43 Albumin (PEP) 3.4 g/dL (3.8-4.8) L 11/21/18 03:30 Globulin 3.6 gm/dL 11/22/18 08:43 Albumin/Globulin Ratio 1.1 (1.1-1.8) 11/22/18 08:43 Zwmuc-9-Yvkxatmkx 0.4 g/dL (0.2-0.3) H 11/21/18 03:30 Ccfip-5-Hnybbechb 0.9 g/dL (0.5-0.9) 11/21/18 03:30 Omdr-5-Kaavlbrz 0.4 g/dL (0.4-0.6) 11/21/18 03:30 Jeyb-8-Afyrsrwv 0.5 g/dL (0.2-0.5) 11/21/18 03:30 Gamma Globulins 1.3 g/dL (0.8-1.7) 11/21/18 03:30 Abnorm Protein Band 1 TEST NOT PERFORMED 11/21/18 03:30 Abnorm Protein Band 2 TEST NOT PERFORMED 11/21/18 03:30 Abnorm Protein Band 3 TEST NOT PERFORMED 11/21/18 03:30 Venous Blood Potassium 4.0 mmol/L (3.6-5.2) 11/20/18 22:44 Urine Color Yellow (YELLOW) 11/20/18 20:20 Urine Appearance Clear (CLEAR) 11/20/18 20:20 Urine pH 6.0 (4.7-8.0) 11/20/18 20:20 Ur Specific [place] 1.015 (1.005-1.035) 11/20/18 20:20 Urine Protein Negative mg/dL (<30 mg/dL) 11/20/18 20:20 Urine Glucose (UA) Negative mg/dL (NEGATIVE) 11/20/18 20:20 Urine Ketones Negative mg/dL (NEGATIVE) 11/20/18 20:20 Urine Blood Small (NEGATIVE) H 11/20/18 20:20 Urine Nitrate Negative (NEGATIVE) 11/20/18 20:20 Urine Bilirubin Negative (NEGATIVE) 11/20/18 20:20 Urine Urobilinogen 0.2 E.U./dL (<1 E.U./dL) 11/20/18 20:20 Ur Leukocyte Esterase Trace Saeed/uL (NEGATIVE) H 11/20/18 20:20 Urine RBC 0 - 2 /hpf (0-2) 11/20/18 20:20 Urine WBC 0 - 2 /hpf (0-6) 11/20/18 20:20 Ur Epithelial Cells None /hpf (0-5) 11/20/18 20:20 ARGELIA & SPEP Interp See note 11/21/18 03:30 DAVID Screen Negative (Negative) 11/21/18 03:30 SS-A Antibody 7.9 AI (<1.0) H 11/21/18 03:30 SS-B Ab Interp Positive (Negative) H 11/21/18 03:30 SS-B Antibody <1.0 AI (<1.0) 11/21/18 03:30 SS-B Ab Interp Negative (Negative) 11/21/18 03:30 Influenza Typ A,B (EIA) Negative for flu a/b (NEGATIVE) 11/20/18 20:20 Attending/Attestation - Attestation I have personally seen and examined this patient.: Yes I have fully participated in the care of the patient.: Yes I have reviewed all pertinent clinical information, including history, physical exam and plan: Yes
[2018-11-22] MEDS: Tobramycin 0.3% OPH OINT OD SCH (14:33)
== END 2018-11-22 16:23 | disposition home or self-care (01) | DRG 125 ==
LOC: ED 18:57 → EDBD 23:06 → ERH 23:06 → 5RSO 11-21 15:30
PROVIDERS: ADMIT Internal Medicine; ATTEND Hospitalist
DX: H10.33 Unspecified acute conjunctivitis, bilateral (principal); J20.9 Acute bronchitis, unspecified; K21.9 Gastro-esophageal reflux disease without esophagitis; I10 Essential (primary) hypertension; M35.00 Sjogren syndrome, unspecified; L29.9 Pruritus, unspecified; H40.9 Unspecified glaucoma; J45.909 Unspecified asthma, uncomplicated; Z91.14 Patient's other noncompliance with medication regimen

== ENCOUNTER 2018-12-06 05:00 | Outpatient (CLI) | payer MEDICARE | END 2018-12-06 05:01 | disposition home or self-care (01) | LOC: PET-BROA 05:00 | DX: D49.1 Neoplasm of unspecified behavior of respiratory system (principal) ==